=== PATIENT | female | born 1940 | race Caucasian/White ===

== ENCOUNTER → 2017-08-07 13:39 | Outpatient (CLI) | payer MEDICARE, OTHER | END | disposition home or self-care (01) | LOC: D.MAMMO 09:30 | DX: Z12.31 Encounter for screening mammogram for malignant neoplasm of breast (principal) ==

== ENCOUNTER → 2019-10-07 13:27 | Outpatient (CLI) | payer MEDICARE, OTHER | END | disposition home or self-care (01) | LOC: D.RAD 13:27 | PROVIDERS: ATTEND Nurse Practitioner Family | DX: R05 Cough (principal); R06.02 Shortness of breath ==

== ENCOUNTER 2020-01-08 06:06 | Inpatient (IN) | payer MEDICARE, OTHER ==
[~2020-01-08] VITALS: Ht 160 cm; Wt 68.0 kg
--- NOTE | ~2020-01-08 | EC ---
PATIENT:PATRICK RIZZO DATE OF SERVICE: 01/08/20 SEX: F MEDICAL RECORD: [id number] DATE OF : 44 LOCATION:D.[id number] AGE OF PATIENT: 79 ADMISSION DATE: 01/08/20 REFERRING PHYSICIAN: INTERPRETING PHYSICIAN: CARMELITA ERIC MD ECHOCARDIOGRAM REPORT ECHO CHARGES 4 ECHO COMPLETE Date: 01/08/20 CLINICAL DIAGNOSIS: CVA ECHOCARDIOGRAPHIC MEASUREMENTS (adult normal given) AC root (d.<3.7cm) 3.0 cm LV Septum d (<1.2 cm> 0.8 cm Valve Excursion 1.8 cm LV Septum (systole) 1.0 cm Left Atria (s.<4.0cm> 3.4 cm LVPW d(<1.2cm) 1.0 cm RV (d.<2.3cm) 2.7 cm LVPW (sytole) 1.1 cm LV diastole(<5.6CM) 5.3 cm MV E-F(>70mm/sec) cm LV systole 4.4 cm LVOT Diameter 1.6 cm MV exc.(>10mm) cm Est.ejection fraction (50-75%) % DOPPLER: LVIT cm/sec A 110 cm/sec E 59 cm/sec LA cm/sec RVSP 14.7 mmHg LVOT 97 cm/sec AOP1/2T m/s Asc. Ao 134 cm/sec RVOT 78 cm/sec RA cm/sec PA 91 cm/sec AV Gradient Peak 7.2 mmHg AV Mean 4.3 mmHg AV Area 1.3 cm MV Gradient Peak 6.7 mmHg MV Mean 2.9 mmHg MV Area cm COMMENTS: Test Tube Maker: Dwaine TUTTLE Sample Collector: 4 Dr. Eric TAPE# PACS Pericardial Effusion N DATE OF SERVICE: 01/08/2020 FINDINGS: 1. Left ventricle: Normal size, structure, shape, and function, ejection fraction 55% to 60%. 2. The left atrium is normal size, shape, and function. 3. The aortic valve is normal. 4. The mitral valve is normal. 5. The tricuspid valve is normal. RVSP is 14.7 mmHg. 6. Right ventricle is normal size, shape, structure, and function. ECHOCARDIOGRAM REPORT [id number] PATRICK RIZZO 7. The right atrium is normal structure and function. 8. The pulmonic valve is normal. 8. The pericardium is normal. TRANSINT:[id number] Voice Confirmation ID: [id number] DOCUMENT ID: [id number] CARMELITA ERIC MD CC: [id number] DICTATION DATE: 01/09/201604 TUB OPERATOR: 01/09/202235 DIS IN 01/09/20 [facility] [address] [id number]
[~2020-01-08 06:06] MED LIST: ASPIRIN81 MG; ASPIRIN81 MG PO; BAYER ASPIRIN325 MG PO; FERROUS SULFAT325 MG; GLUCOPHAGE500 MG PO; GLUCOTROL 5 MG T5 MG PO; HYDRALAZINE HCL25 MG PO; NORVASC10 MG PO; PAROXETINE HCL10 MG PO; RESTORIL15 MG PO; SYNTHROID112 MCG PO; TOPROL XL100 MG PO
[2020-01-08 06:28] LABS: BASOPHILS 0.5 % (0-2); EOSINOPHILS 3.7 % (0-7); HEMATOCRIT 38.2 % (36.0-48.0); HEMOGLOBIN 11.9 g/dL (12-16); IMMATURE GRANULOCYTES 0.2 % (0-5); LYMPHOCYTES 13.6 % (15-50); MCH 29.2 pg (26.0-34.0); MCHC 31.2 g/dL (31.0-37.0); MCV 93.9 fL (80.0-100.0); MEAN PLATELET VOLUME 9.3 fL (7.4-10.4); MONOCYTES 6.2 % (2-11); NEUTROPHILS 75.8 % (40-80); PLATELET COUNT 305 10x3/uL (130-400); RBC 4.07 10x6/uL (4.00-5.40); RDW 13.6 % (11.5-14.5); WBC 9.9 10x3/uL (4.8-10.8)
--- NOTE | 2020-01-08 06:32 | NUR ---
URINE SENT TO LAB AT THIS TIME.
[2020-01-08 06:35] LABS: CALC OSMOLALITY 281 mosm/kg (275-300); CALCIUM 8.6 mg/dL (8.5-10.1); CARBON DIOXIDE 26.9 mmol/L (21.0-32.0); CHLORIDE - SERUM 100 mmol/L (98-107); CREATININE - SERUM 1.4 mg/dL (0.6-1.3); POTASSIUM - SERUM 3.5 mmol/L (3.5-5.1); SODIUM 134 mmol/L (136-145); UREA NITROGEN 11 mg/dL (7-18); eGFR NON AFRICAN AMERICAN 39 mL/min (90-120)
[2020-01-08 06:36] LABS: APTT 26.4 SECONDS (22.8-39.4); INR 0.99 (0.85-1.17)
[2020-01-08 06:37] LABS: GLUCOSE 372 mg/dL (74-106)
[2020-01-08 06:39] LABS: BILIRUBIN NEGATIVE (NEGATIVE); GLUCOSE 1000 mg/dL (NEGATIVE); KETONE SMALL mg/dL (NEGATIVE); NITRITE NEGATIVE (NEGATIVE); UROBILINOGEN NORMAL (NORMAL)
--- NOTE | 2020-01-08 06:43 | NUR ---
PT TO ORDERED CT AT THIS TIME.
[2020-01-08 06:48] LABS: UDS - AMPHET NEGATIVE QUAL (NEGATIVE); UDS - BARB NEGATIVE QUAL (NEGATIVE); UDS - BENZO NEGATIVE QUAL (NEGATIVE); UDS - COCAINE NEGATIVE QUAL (NEGATIVE); UDS - OPIATE NEGATIVE QUAL (NEGATIVE); UDS - PCP NEGATIVE QUAL (NEGATIVE); UDS - THC NEGATIVE QUAL (NEGATIVE)
[2020-01-08 06:50] LABS: ALBUMIN 3.4 g/dL (3.4-5.0); ALKALINE PHOSPHATASE 108 U/L (30-120); ALT (SGPT) 20 U/L (10-68); BILIRUBIN - TOTAL 0.35 mg/dL (0.2-1.3); CREATINE KINASE 106 UL (21-215); MAGNESIUM - SERUM 1.5 mg/dL (1.8-2.4); PROTEIN - SERUM 7.3 g/dL (6.4-8.2); THYROID STIMULATING HORMONE 3.71 uIU/mL (0.36-3.74)
[2020-01-08 06:52] LABS: TROPONIN-I < 0.017 ng/mL (0.000-0.060)
[2020-01-08 07:02] VITALS: BP 186/79
[2020-01-08 08:00] VITALS: BP 191/79
--- NOTE | 2020-01-08 08:45 | NUR ---
TO ROOM 2224 FROM ER VIA STRETCHER. PATIENT IS WITHOUT DISTRESS.SHE IS CONFUSED.FALL PREVENTION INITIATED WITH ANTWAN MAT.DOOR OPEN
[2020-01-08 08:54] VITALS: BP 191/79; BMI 26.6
[2020-01-08 09:20] VITALS: Ht 160 cm; Wt 68.0 kg
--- NOTE | 2020-01-08 09:39 | NUR ---
CALL FROM FAMILY,PASSWORD CONFIRMED.UPDATE GIVEN
[2020-01-08 12:27] LABS: CHOL - HDL RATIO 2.2 ratio (2.3-4.1); LDL-HDL RATIO 0.9 ratio (1.5-3.5)
[2020-01-08 13:09] LABS: CKMB 0.6 U/L (0.0-3.6); CREATINE KINASE 94 UL (21-215); TROPONIN-I 0.018 ng/mL (0.000-0.060)
[2020-01-08 16:00] VITALS: BP 170/62
[2020-01-08 17:43] LABS: CKMB 0.5 U/L (0.0-3.6); CREATINE KINASE 110 UL (21-215); TROPONIN-I 0.019 ng/mL (0.000-0.060)
--- NOTE | 2020-01-08 20:00 | NUR ---
PATIENT ANTWAN ALARM SOUNDING. IMMEDIATELY INTO ROOM TO ASSESS PATIENT. PATIENT STATED SHE NEEDED TO VOID. ASSISTED TO THE BATHROOM. PATIENT STEADY ON FEET, REQUIRING STAND BY ASSIST. PATIENT CALM, ASNWERS QUESTIONS APPROPRIATELY. WHEN ASKED IF SHE FELT BETTER SHE STATED SHE FEELS MUCH BETTER. PATIENT DENIES NEEDS. STATES SHE WOULD LIKE TO GO BACK TO BED. INSTRUCTED PATIENT ON HOW TO USE CALL LIGHT. VERBALIZES UNDERSTANDING. REFUSES TO WEAR SCD'S AT THIS TIME. CPOC.
[2020-01-08 21:29] VITALS: BP 132/61
[2020-01-08 23:53] LABS: CKMB 0.2 U/L (0.0-3.6); CREATINE KINASE 137 UL (21-215); TROPONIN-I 0.021 ng/mL (0.000-0.060)
[2020-01-09] VITALS: BP 154/68
--- NOTE | 2020-01-09 02:15 | NUR ---
RESTING WITH NO SIGNS OR SYMPTOMS OF DISTRESS AT THIS TIME. CPOC.
--- NOTE | 2020-01-09 03:00 | NUR ---
I have reviewed this patient and I concur with the Shift Assessment completed by the Licensed Practical Nurse today this shift.
[2020-01-09 04:00] VITALS: BP 131/62
[2020-01-09 06:09] LABS: BASOPHILS 0.4 % (0-2); EOSINOPHILS 2.4 % (0-7); HEMATOCRIT 40.3 % (36.0-48.0); HEMOGLOBIN 12.9 g/dL (12-16); IMMATURE GRANULOCYTES 0.2 % (0-5); LYMPHOCYTES 33.4 % (15-50); MCH 29.6 pg (26.0-34.0); MCV 92.4 fL (80.0-100.0); MEAN PLATELET VOLUME 9.4 fL (7.4-10.4); MONOCYTES 12.5 % (2-11); NEUTROPHILS 51.1 % (40-80); PLATELET COUNT 350 10x3/uL (130-400); RBC 4.36 10x6/uL (4.00-5.40); RDW 13.6 % (11.5-14.5); WBC 9.8 10x3/uL (4.8-10.8)
[2020-01-09 06:10] LABS: ALBUMIN 3.5 g/dL (3.4-5.0); ANION GAP 10.4 mmol/L (8-16); BILIRUBIN - TOTAL 0.76 mg/dL (0.2-1.3); CARBON DIOXIDE 29.7 mmol/L (21.0-32.0); CREATININE - SERUM 1.2 mg/dL (0.6-1.3); POTASSIUM - SERUM 3.1 mmol/L (3.5-5.1); PROTEIN - SERUM 7.4 g/dL (6.4-8.2)
--- NOTE | 2020-01-09 06:30 | NUR ---
I have reviewed this patient and I concur with the Shift Assessment completed by the Licensed Practical Nurse today this shift.
--- NOTE | 2020-01-09 07:10 | NUR ---
PT RESTING IN BED. NO SIGNS OF DISTRESS. IV TO LEFT FORARM PATENT NO REDNESS OR TENDERNESS. ON TELEMETRY 56 SR. DENIES ANY FURTHER NEED AT THIS TIME CALL LIGHT IN REACH. BED LOW POSITION. NO FAMILY AT BEDSIDE AT THIS TIME. ALL FALL PRECAUTIONS IN PLACE AT THIS TIME.
[2020-01-09] MEDS ORDERED: ASPIRIN325 MG PO (11:51)
[2020-01-09] MEDS ORDERED: LIPITOR20 MG PO (11:51)
[2020-01-09] MEDS ORDERED: PROTONIX40 MG PO (11:51)
[2020-01-09 13:09] VITALS: BP 159/69
--- NOTE | 2020-01-09 13:58 | NUR ---
I have reviewed this patient and I concur with the Shift Assessment completed by the Licensed Practical Nurse today this shift.
--- NOTE | 2020-01-09 14:44 | NUR ---
DISCHARGE INSTRUCTIONS GIVEN. SEEMS TO UNDERSTAND INSTRUCTIONS. IV OUT TIP INTACT. TELEMETRY OFF AND RETURNED. NO SIGNS OF DISTRESS. LEFT WITH HOSPITAL STAFF TO GO HOME IN PERSONAL RIDE WITH DAUGHTER.
--- NOTE | 2020-01-09 15:14 | MORECARE ---
CASE MANAGEMENT DISCHARGE SUMMARY PATIENT: PATRICK RIZZO UNIT: [id number] ADM DATE: 01/08/20 AGE: 79 : 42 SEX: F ROOM/BED: D.2224 AUTHOR: NOEMI RUBIO PHYSICIAN: REFERRING PHYSICIAN: SANG JUDGE MD DATE OF SERVICE: 01/09/20 Discharge Plan Patient Name: PATRICK RIZZO [facility] [facility] 1940 Planned Disposition: Home Anticipated Discharge Date: Discharge Date: 01/09/2020 Expected LOS: Initial Reviewer: [email or web address] Initial Review Date: 01/08/2020 Generated: 01/09/20 4:13 pm DCPIA - Discharge Planning Initial Assessment Updated by [email or web address]: Marycarmen Ortiz on 01/09/20 3:10 pm * Is the patient Alert and Oriented? Yes * How many steps to enter\exit or inside your home? * PCP TOMI * Pharmacy [facility] * Preadmission Environment Home Alone * ADLs Independent * Equipment Walker * List name and contact numbers for known caregivers / representatives who currently or will assist patient after discharge: ITZEL WANG - DRAKE- [phone] * Verbal permission to speak to the caregivers and representatives has been obtained from the patient. Yes * Community resources currently utilized None * Additional services required to return to the preadmission environment? No * Can the patient safely return to the preadmission environment? Yes * Has this patient been hospitalized within the prior 30 days at any hospital? No Patient Name: PATRICK RIZZO Page [id number] at 1514 All edits/amendments must be made on the electronic document DICTATION DATE: 01/09/20 151 BAND BIAS MACHINE OPERATOR: KAUR 01/09/20 151 RPT#: [id number] DC DATE:01/09/20 STATUS: DIS IN [facility] [address] [place] [address] END OF REPORT
--- NOTE | 2020-01-09 15:20 | MORECARE ---
CASE MANAGEMENT DISCHARGE SUMMARY PATIENT: PATRICK RIZZO UNIT: [id number] ADM DATE: 01/08/20 AGE: 79 : 42 SEX: F ROOM/BED: D.2224 AUTHOR: RAMIRO,DOC PHYSICIAN: REFERRING PHYSICIAN: SANG JUDGE MD DATE OF SERVICE: 01/09/20 Discharge Plan Patient Name: PATRICK RIZZO Facility: [facility]:[place] : 1940 Planned Disposition: Home Anticipated Discharge Date: Discharge Date: 01/09/2020 Expected LOS: Initial Reviewer: [email or web address] Initial Review Date: 01/08/2020 Generated: 01/09/20 4:20 pm Comments DCP- Discharge Planning Updated by [email or web address]: Marycarmen Ortiz on 01/09/20 2:[address] Patient Name: PATRICK RIZZO Admission Status: ER Accout number: [id number] Admission Date: 01-08-2020 : 1940 Admission Diagnosis: Attending: SONDRA Current LOS: 1 Anticipated DC Date: Planned Disposition: Home Primary Insurance: MEDICARE A & B Discharge Planning Comments: CM met with patient to complete initial dc planning assessment. CM educated patient on the CM role and verbal consent given by patient to complete assessment. Patient lives at home alone where she is independent with her care. At discharge patient plans to return home and feels this is a safe discharge. CM discussed availability of home health, rehab services, and medical equipment. 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 Patient states that she had Home Health recently but they stopped within the last week or so. Patient can't remember the name of the Home Health she had but she doesn't feel like she needs them anymore. Declination signed. Patient denied known discharge needs at this time. CM will continue to follow and will assist as needed with dc plans/needs. Press Breaker: Marycarmen Ortiz DCPIA - Discharge Planning Initial Assessment Updated by [email or web address]: Marycarmen Ortiz on 01/09/20 3:10 pm * Is the patient Alert and Oriented? Yes * How many steps to enter\exit or inside your home? * PCP TOMI * Pharmacy [facility] * Preadmission Environment Home Alone * ADLs Independent * Equipment Walker * List name and contact numbers for known caregivers / representatives who currently or will assist patient after discharge: ITZEL WANG - DRAKE- [phone] * Verbal permission to speak to the caregivers and representatives has been obtained from the patient. Yes * Community resources currently utilized None * Additional services required to return to the preadmission environment? No * Can the patient safely return to the preadmission environment? Yes * Has this patient been hospitalized within the prior 30 days at any hospital? No Last DP export: 01/09/20 2:14 pm Patient Name: PATRICK RIZZO Page [id number] at 1520 All edits/amendments must be made on the electronic document DICTATION DATE: 01/09/20 1520 PERCOLATOR OPERATOR: KAUR 01/09/20 1520 RPT#: [id number] DC DATE:01/09/20 STATUS: DIS IN [facility] [address] [place] [address] END OF REPORT
== END 2020-01-09 14:45 | disposition home or self-care (01) | DRG 65 ==
LOC: D.ER 06:06 → D.MS 08:07
PROVIDERS: Family Medicine; ADMIT Family Medicine; ATTEND Family Medicine
DX: I63.9 Cerebral infarction, unspecified (principal); I69.351 Hemiplegia and hemiparesis following cerebral infarction affecting right dominant side; R13.10 Dysphagia, unspecified; E11.65 Type 2 diabetes mellitus with hyperglycemia; E03.9 Hypothyroidism, unspecified; I10 Essential (primary) hypertension; K21.9 Gastro-esophageal reflux disease without esophagitis; N28.9 Disorder of kidney and ureter, unspecified; F41.9 Anxiety disorder, unspecified; I69.321 Dysphasia following cerebral infarction; M19.90 Unspecified osteoarthritis, unspecified site; J45.909 Unspecified asthma, uncomplicated